=== PATIENT | female | born 1995 | race African-American/Black ===

== ENCOUNTER 2017-10-25 06:20 | Inpatient (IN) | payer OTHER ==
[2017-10-25] MEDS ORDERED: Butorphanol Tartrate 1 MG/ML VIAL ONE (06:36)
[2017-10-25 06:54] VITALS: BMI 28.3
[2017-10-25] MEDS ORDERED: DISCONTINUE ALL PREVIOUS NARCOTICS FS SCH (07:15)
[2017-10-25] MEDS ORDERED: Bupivacaine 0.75% 13.4 ML, fentaNYL Citrate/PF 400 MCG in Sodium Chloride 0.9% 78.6 ML EPIDURAL SCH ×2 (07:15→10:45)
[2017-10-25] MEDS: Lactated Ringer's 1,000 ML IV SCH ×4 (07:27→15:41)
[2017-10-25] MEDS ORDERED: HYDROcodone/Acetaminophen 5/325 mg Tablet PO PRN ×4 (07:28→21:19)
[2017-10-25] MEDS ORDERED: NS / Oxytocin 40 units/1000ml 1,000 ML IV PRN (07:28)
[2017-10-25] MEDS ORDERED: Butorphanol Tartrate 1 MG/ML VIAL SLOW IVP PRN (07:28)
[2017-10-25] MEDS ORDERED: Ibuprofen 800 MG TAB PO PRN (07:28)
[2017-10-25] MEDS ORDERED: Acetaminophen 500 MG TAB PO PRN (07:28)
[2017-10-25] MEDS ORDERED: Promethazine HCl 25 MG/ML VIAL IM PRN ×3 (07:28→21:19)
[2017-10-25] MEDS ORDERED: Lidocaine 1% (PF) 30 ML VIAL SC PRN (07:28)
[2017-10-25] MEDS ORDERED: Lactated Ringer's 1,000 ML IV SCH (07:30)
[2017-10-25 08:16] LABS: Hemoglobin 12.3 g/dL (12.0-16.0); Mean Corpuscular HGB CONC 33.3 g/dL (32.0-36.0); Mean Corpuscular Hemoglobin 28.5 pg (25.0-35.0); Mean Corpuscular Volume 85.7 fL (78.0-98.0); Mean Platelet Volume 9.5 fL (7.4-10.4); Platelet Count 146 thou/uL (130-400); RBC Distribution Width 19.3 % (11.5-14.5); Red Blood Cell (RBC) Count 4.33 mill/uL (4.00-5.20); White Blood Cell (WBC) Count 5.3 thou/uL (4.8-10.8)
[2017-10-25 08:50] LABS: HBSAg Index 0.17 S/CO (0-0.99); Hep B Surf Ag Non-Reactive S/CO (NonReactive)
[2017-10-25] MEDS ORDERED: Eucerin (Mineral Oil/Petrolatum,White) 30 gm Jar TOP PRN (10:37)
[2017-10-25] MEDS ORDERED: Acetaminophen 325 MG TAB PO PRN (10:37)
[2017-10-25] MEDS ORDERED: Lactated Ringer's 500 ML IV PRN (10:37)
[2017-10-25] MEDS ORDERED: Ondansetron HCl/PF 4 MG/2 ML Vial IVP PRN ×2 (10:37→21:19)
[2017-10-25] MEDS ORDERED: ePHEDrine/0.9% NaCl/PF SYRINGE 50 mg/10 ml SLOW IVP PRN (10:37)
[2017-10-25] MEDS ORDERED: Naloxone HCl 0.4 mg/ml Vial IVP PRN ×2 (10:37)
[2017-10-25] MEDS ORDERED: diphenhydrAMINE 50 MG/ML VIAL IVP PRN (10:37)
[2017-10-25] MEDS ORDERED: Communication Order-Pharmacy FS SCH (10:45)
[2017-10-25] MEDS ORDERED: fentaNYL Citrate/PF 400 MCG, Bupivacaine 0.5% 20 ML in Sodium Chloride 0.9% 72 ML EPIDURAL SCH (10:45)
[2017-10-25] MEDS: Ondansetron HCl/PF 4 MG/2 ML Vial IVP PRN ×2 (12:28→18:58)
[2017-10-25] MEDS ORDERED: Adacel (T-DAP) 0.5 ML VIAL IM ONE (21:19)
[2017-10-25] MEDS ORDERED: Benzocaine/Menthol 20-0.5% 60 ML CAN TOP PRN (21:19)
[2017-10-25] MEDS ORDERED: NS / Oxytocin 40 units/1000ml 1,000 ML IV SCH (21:19)
[2017-10-25] MEDS ORDERED: Lanolin Ointment 7 GM TUBE TOP PRN (21:19)
[2017-10-25] MEDS ORDERED: Milk Of Magnesia 30 ML UDCUP PO PRN (21:19)
[2017-10-25] MEDS ORDERED: Bisacodyl 10 MG SUPP PR PRN (21:19)
[2017-10-25] MEDS: Ibuprofen 800 MG TAB PO SCH (23:46)
[2017-10-25] MEDS: Docusate Calcium (SURFAK) 240 MG CAP PO SCH (23:47)
[2017-10-26] MEDS: Ibuprofen 800 MG TAB PO SCH ×3 (06:43→21:51)
[2017-10-26] MEDS: Ferrous Sulfate 325 MG TAB PO SCH ×2 (08:58→13:47)
[2017-10-26] MEDS ORDERED: Prenatal Vitamin 1 TAB PO SCH (09:00)
[2017-10-26] MEDS: Docusate Calcium (SURFAK) 240 MG CAP PO SCH ×2 (09:24→21:51)
[2017-10-26 10:41] LABS: Syphilis Antibody Nonreactive (Nonreactive); Syphilis Antibody Index 0.02 S/CO (<1.00 Non-Reactive)
[2017-10-27] MEDS: Ibuprofen 800 MG TAB PO SCH (05:38)
[2017-10-27 08:47] VITALS: BP 107/61; TEMP 99.3
== END 2017-10-27 10:57 | disposition home or self-care (01) | DRG 775 ==
LOC: L&D/OP 06:20 → L&D 07:15 → 3SE 21:16
PROVIDERS: ADMIT Obstetrics & Gynecology; ATTEND Obstetrics & Gynecology
PROC: 10E0XZZ Delivery of Products of Conception, External Approach (ICD-10-PCS; principal; 2017-10-25)
PROC: 10907ZC Drainage of Amniotic Fluid, Therapeutic from Products of Conception, Via Natural or Artificial Opening (ICD-10-PCS; 2017-10-25)
DX: O99.02 Anemia complicating childbirth (principal); D64.9 Anemia, unspecified; Z3A.39 39 weeks gestation of pregnancy; Z37.0 Single live birth; O69.81X0 Labor and delivery complicated by cord around neck, without compression, not applicable or unspecified; O70.1 Second degree perineal laceration during delivery
CPT/HCPCS: 51702; 85027; 86780; 86850; 86900; 86901; 87340; 99285; J0595; J2001; J2405; J3010; J7050